=== PATIENT | male | born 1935 | race Caucasian/White ===

== ENCOUNTER 2017-01-04 09:24 | Outpatient (CLI) | payer MEDICARE, OTHER ==
--- NOTE | 2017-01-04 13:02 | Ultrasound Report ---
REVISED: THIS REPORT WAS ORIGINALLY SIGNED ON 01/04/2017 @ 1713. NO CHANGES MADE TO REPORT. ORIGINAL [facility] REQUISITION WAS REPRINTED ON 01/19/2017. LIMITED ABDOMINAL ULTRASOUND: 01/04/2017 CLINICAL HISTORY: Primarily for evaluation of the right kidney. The patient had an incidental finding of a renal cyst on MRI of the lumbar spine. TECHNIQUE: Real-time scanning was performed with tax representative static images obtained. FINDINGS: The right kidney measures 1.1 cm by 0.9 cm x 0.9 cm. Adjacent to or within the wall of this small cyst is some calcification or small calculus measuring 0.3 cm. These findings have a benign appearance. The rest of the right kidney appears normal including the mid pole. No other masses are seen in the right kidney. The pyelocaliceal system shows no distention. IMPRESSION: 1. SMALL CYST MEASURING 1.1 CM BY 0.9 CM BY 0.9 CM IS NOTED IN THE INFERIOR POLE OF THE RIGHT KIDNEY. THIS CYST CONTAINS EITHER SOME CALCIFICATION IN ITS WALL OR A SMALL CALCULUS ADJACENT TO IT. THE FINDINGS HAVE A BENIGN APPEARANCE. 2. NO ABNORMALITY WAS NOTED IN THE MID POLE OF THE RIGHT KIDNEY. ADDENDUM: For correlation with today's right renal ultrasound, patient's MRI of the lumbar spine from [facility] will be obtained for further correlation. On the recent MRI, there was a question of a right renal lesion, This led to today's ultrasound. JOB #: [id number] EXT JOB #: [id number] [email or web address]
== END 2017-01-04 09:25 | disposition home or self-care (01) ==
LOC: DI 09:24
PROVIDERS: ATTEND Internal Medicine
DX: N28.1 Cyst of kidney, acquired (principal)
CPT/HCPCS: 76705

== ENCOUNTER 2018-09-14 12:59 | Outpatient (CLI) | payer MEDICARE, OTHER ==
--- NOTE | 2018-09-14 14:38 | XRAY Report ---
Reason: R HIP PAIN Procedure Date: 09/14/2018 Accession Number: [id number] / [id number] Procedure: XR - Hip w/Pelvis 2-3V RT CPT Code: FULL RESULT: EXAM: RIGHT HIP RADIOGRAPHY EXAM DATE: 09/14/2018 01:15 PM. CLINICAL HISTORY: Right hip pain. COMPARISON: None. TECHNIQUE: 2 views. FINDINGS: Bones: Normal. No fractures or bone lesion. Joints: No dislocation. Bilateral moderate hip joint space narrowing. Soft Tissues: Normal. No soft tissue swelling. 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 RADIA
== END 2018-09-14 13:00 | disposition home or self-care (01) ==
LOC: DI 12:59
PROVIDERS: ATTEND Internal Medicine
DX: M16.0 Bilateral primary osteoarthritis of hip (principal)

== ENCOUNTER 2021-04-26 19:24 | Emergency (ER) | payer MEDICARE, OTHER ==
--- NOTE | 2021-04-26 19:50 | ED Physician Documentation ---
History of Present Illness - Stated complaint Stated Complaint: BEE STING REACTION - Chief complaint Chief Complaint: Allergic Rx - History obtained from History obtained from: Patient - Additonal information Additional information: 85yo with bee or wasp sting tonight at 7pm to lateral thigh. Developed diaphoresis and 45 minutes of substernal chest pain. Now better. Review of Systems Ten Systems: 10 systems reviewed and negative Constitutional: reports: Sweats Cardiac: reports: Chest pain / pressure. denies: Palpitations Respiratory: denies: Dyspnea, Cough PD PAST MEDICAL HISTORY - Past Medical History Past Medical History: Yes Cardiovascular: None Respiratory: None Endocrine/Autoimmune: None GI: None : Benign prostate hypertrophy HEENT: None Psych: None Musculoskeletal: Other Derm: Herpes zoster - Past Surgical History General: Appendectomy Ortho: Other HEENT: Tonsil/Adenoidectomy - Present Medications Home Medications: Ambulatory Orders Medication Instructions Recorded Confirmed No Known Home Medications 04/26/21 04/26/21 - Allergies Allergies/Adverse Reactions: Allergies Allergy/AdvReac Type Severity Reaction Status Date / Time No Known Drug Allergies Allergy Verified 04/26/21 19:28 - Social History Does the pt smoke?: No Smoking Status: Never smoker PD ED PE NORMAL - Vitals Vital signs reviewed: Yes - General General: Alert and oriented X 3, No acute distress - HEENT HEENT: PERRL, EOMI - Neck Neck: Supple, no meningeal sign, No bony TTP - Cardiac Cardiac: RRR, No murmur - Respiratory Respiratory: No respiratory distress, Clear bilaterally - Abdomen Abdomen: Normal bowel sounds, Soft, Non tender - Back Back: No CVA TTP, No spinal TTP - Derm Derm: Normal color, Warm and dry - Extremities Extremities: No edema, No calf tenderness / cord - Neuro Neuro: Alert and oriented X 3, Normal speech Results - Vitals Vitals: Vital Signs - 24 hr 04/26/21 04/26/21 19:29 19:31 Temperature 37.0 C 37 C Heart Rate 82 82 Respiratory 18 18 Rate Blood Pressure 113/65 113/65 O2 Saturation 99 99 Oxygen O2 Source Room air - EKG (time done) 1952 Rate: Rate (enter#) (85) Rhythm: NSR (w pvc) Eagle: Normal Intervals: Normal TX QRS: LVH Ischemia: Q waves, Non specific changes - Labs Labs: Laboratory Tests 04/26/21 04/26/21 04/26/21 20:25 20:25 20:25 WBC 14.6 H RBC 5.49 Hgb 16.2 Hct 48.2 MCV 87.8 MCH 29.5 MCHC 33.6 RDW 13.0 Plt Count 294 MPV 9.8 Neut # (Auto) 11.7 H Lymph # (Auto) 2.0 Mchenry # (Auto) 0.8 Eos # (Auto) 0.1 Baso # (Auto) 0.0 Absolute Nucleated RBC 0.00 Nucleated RBC % 0.0 Sodium 141 Potassium 4.4 Chloride 102 Carbon Dioxide 27 Anion Gap 12.0 BUN 26 H Creatinine 1.5 H Estimated GFR (MDRD) 45 L Glucose 208 H Calcium 9.3 Total Bilirubin 0.4 AST 22 ALT 19 Alkaline Phosphatase 91 Troponin I High Sens 6.3 Total Protein 7.5 Albumin 4.1 Globulin 3.4 Albumin/Globulin Ratio 1.2 Lipase 49 PD MEDICAL DECISION MAKING - ED course ED course: 85-year-old gentleman with known coronary disease presents with chest pain and diaphoresis that was temporary after a wasp sting. Nothing in the history or physical at this point to suggest this and his symptoms have resolved. Departure - Departure Disposition: 01 Home, Self Care Clinical Impression: Insect bites and stings, Chest pain Condition: Good Record reviewed to determine appropriate education?: Yes Instructions: ED Chest Pain Atypical Unkn Cause, ED Allergic Reaction Local Other Comments: No evidence of anything serious going on tonight. Note that your renal function has gone downhill over the last few years, currently BUN of 26, creatinine of 1.5, GFR 45. Recommend you follow-up with your primary care physician to discuss. Return for new or worsening symptoms.
[2021-04-26 20:32] LABS: BASOPHILS % (AUTO) 0.1 %; EOSINOPHILS # (AUTO) 0.1 10^3/uL (0.0-0.7); EOSINOPHILS % (AUTO) 0.3 %; HCT - HEMATOCRIT 48.2 % (42.0-52.0); HGB - HEMOGLOBIN 16.2 g/dL (14.0-18.0); LYMPHOCYTES % (AUTO) 13.6 %; MEAN CORPUSCULAR HEMOGLOBIN 29.5 pg (27.0-31.0); MEAN CORPUSCULAR HGB CONC 33.6 g/dL (32.0-36.0); MEAN CORPUSCULAR VOLUME 87.8 fL (80.0-94.0); MEAN PLATELET VOLUME 9.8 fL (7.4-11.4); MONOCYTES # (AUTO) 0.8 10^3/uL (0.0-1.0); MONOCYTES % (AUTO) 5.3 %; NEUTROPHILS # (AUTO) 11.7 10^3/uL (1.5-6.6); NEUTROPHILS % (AUTO) 80.3 %; PLT - PLATELET COUNT 294 10^3/uL (130-450); RED BLOOD COUNT 5.49 10^6/uL (4.70-6.10); WHITE BLOOD COUNT 14.6 x10^3/uL (4.8-10.8)
[2021-04-26 20:46] LABS: ALBUMIN 4.1 g/dL (3.2-5.5); ALBUMIN/GLOBULIN RATIO 1.2 (1.0-2.2); BILIRUBIN,TOTAL 0.4 mg/dL (0.2-1.0); CALCIUM 9.3 mg/dL (8.5-10.3); CREATININE 1.5 mg/dL (0.6-1.2); POTASSIUM 4.4 mmol/L (3.5-5.0); TOTAL PROTEIN 7.5 g/dL (6.7-8.2)
--- NOTE | 2021-04-26 21:13 | XRAY Report ---
PROCEDURE: Chest 1 View X-Ray INDICATIONS: Chest Pain COMMENTS: bee sting today, possible allergic reaction PRIORS: none TECHNIQUE: One view of the chest was acquired. COMPARISON: None FINDINGS: Surgical changes and devices: None. Lungs and pleura: No pleural effusions or pneumothorax. Lungs are clear. Mediastinum: Mediastinal contours appear normal. Heart size is normal. Bones and chest wall: No suspicious bony lesions. Overlying soft tissues appear unremarkable. IMPRESSION: No acute cardiopulmonary abnormality Reviewed by: Christopher Cloud on 04/26/2021 9:12 PM PDT Approved by: Christopher Cloud on 04/26/2021 9:12 PM PDT Station ID: [id number]
[2021-04-26 21:29] VITALS: BP 108/72
== END 2021-04-26 21:35 | disposition home or self-care (01) ==
LOC: ED 19:24
DX: T63.461A Toxic effect of venom of wasps, accidental (unintentional), initial encounter (principal); R07.89 Other chest pain; R61 Generalized hyperhidrosis; I25.10 Atherosclerotic heart disease of native coronary artery without angina pectoris; I49.3 Ventricular premature depolarization
CPT/HCPCS: 36415; 80053; 83690; 84484; 85025; 93005; 99282; 99284

== ENCOUNTER 2021-10-25 08:00 | Outpatient (CLI) | payer MEDICARE, OTHER ==
[2021-10-25 17:45] LABS: BASOPHILS # (AUTO) 0.1 10^3/uL (0.0-0.1); BASOPHILS % (AUTO) 0.6 %; EOSINOPHILS # (AUTO) 0.1 10^3/uL (0.0-0.7); EOSINOPHILS % (AUTO) 0.9 %; HCT - HEMATOCRIT 46.2 % (42.0-52.0); HGB - HEMOGLOBIN 15.6 g/dL (14.0-18.0); LYMPHOCYTES # (AUTO) 2.2 10^3/uL (1.5-3.5); MEAN CORPUSCULAR HEMOGLOBIN 29.5 pg (27.0-31.0); MEAN CORPUSCULAR HGB CONC 33.8 g/dL (32.0-36.0); MEAN CORPUSCULAR VOLUME 87.5 fL (80.0-94.0); MEAN PLATELET VOLUME 10.5 fL (7.4-11.4); MONOCYTES # (AUTO) 0.8 10^3/uL (0.0-1.0); MONOCYTES % (AUTO) 9.7 %; NEUTROPHILS % (AUTO) 61.6 %; PLT - PLATELET COUNT 285 10^3/uL (130-450); RED BLOOD COUNT 5.28 10^6/uL (4.70-6.10); RED CELL DISTRIBUTION WIDTH 13.2 % (12.0-15.0); WHITE BLOOD COUNT 8.1 x10^3/uL (4.8-10.8)
[2021-10-25 18:15] LABS: ALBUMIN 4.5 g/dL (3.2-5.5); ALBUMIN/GLOBULIN RATIO 1.2 (1.0-2.2); ALKALINE PHOSPHATASE 83 IU/L (42-121); ALT ALANINE AMINOTRANSFERASE 20 IU/L (10-60); AST ASPARTATE AMINOTRANSFERASE 22 IU/L (10-42); BILIRUBIN,TOTAL 0.9 mg/dL (0.2-1.0); BUN - BLOOD UREA NITROGEN 22 mg/dL (6-20); CALCIUM 9.6 mg/dL (8.5-10.3); CARBON DIOXIDE - CO2 27 mmol/L (21-32); CHLORIDE 99 mmol/L (101-111); CHOL/HDL RATIO 4.3 (<5.0); CHOLESTEROL 191 mg/dL; CREATININE 1.3 mg/dL (0.6-1.2); GFR - MDRD 53 (>89); GLUCOSE 93 mg/dL (70-100); HDL CHOLESTEROL 44 mg/dL; LDL CHOLESTEROL,CALCULATED 125 mg/dL; LDL/HDL RATIO 2.8 (<3.6); POTASSIUM 3.7 mmol/L (3.5-5.0); SODIUM 140 mmol/L (135-145); TOTAL PROTEIN 8.3 g/dL (6.7-8.2); TRIGLYCERIDES 108 mg/dL; VLDL CHOLESTEROL 22 mg/dL
[2021-10-25 18:16] LABS: PSA FREE 1.281 ng/mL (0.16-2.81)
[2021-10-25 18:17] LABS: PSA TOTAL 3.232 ng/mL (0.000-2.000)
[2021-10-25 18:21] LABS: THYROID STIMULATING HORMONE 2.96 uIU/mL (0.34-5.60)
[2021-10-25 18:58] LABS: ESTIMATED AVERAGE GLUCOSE 123 mg/dL (70-100); HEMOGLOBIN A1c% 5.9 % (4.27-6.07)
== END 2021-10-25 23:59 | disposition home or self-care (01) ==
LOC: LAB.R 08:00
PROVIDERS: ATTEND Internal Medicine
DX: Z00.00 Encounter for general adult medical examination without abnormal findings (principal); N40.0 Benign prostatic hyperplasia without lower urinary tract symptoms; R74.8 Abnormal levels of other serum enzymes; R20.0 Anesthesia of skin; M19.90 Unspecified osteoarthritis, unspecified site; Z13.6 Encounter for screening for cardiovascular disorders; M48.00 Spinal stenosis, site unspecified; R53.1 Weakness
CPT/HCPCS: 80053; 80061; 82607; 83036; 83721; 84153; 84154; 84443; 85025

== ENCOUNTER 2021-11-10 15:35 | Outpatient (CLI) | payer MEDICARE, OTHER ==
--- NOTE | 2021-11-11 14:09 | Ultrasound Report ---
PROCEDURE: Duplex Lwr Ext Arterial Bilat INDICATIONS: WEAKNESS, LEG NUMBNESS TECHNIQUE: Color and pulse Doppler interrogation was performed of both lower extremity arterial systems, with im age documentation. COMPARISON: None FINDINGS: Right lower extremity: Common femoral artery: 98 cm/sec, with triphasic flow. Deep femoral artery: 89 cm/sec, with triphasic flow. Proximal superficial femoral artery: 108 cm/sec, with triphasic flow. Mid superficial femoral artery: 96 cm/sec, with triphasic flow. Distal superficial femoral artery: 106 cm/sec, with tract flow. Popliteal artery: 63 cm/sec, with triphasic flow. Posterior tibial artery: 122 cm/sec, with triphasic flow. Anterior tibial artery/dorsalis pedis: 91/49 cm/sec, with triphasic/biphasic flow. Green-scale imaging description: Mild scattered plaque. Left lower extremity: Common femoral artery: 81 cm/sec, with triphasic flow. Deep femoral artery: 70 cm/sec, with triphasic flow. Proximal superficial femoral artery: 60 cm/sec, with triphasic flow. Mid superficial femoral artery: 93 cm/sec, with triphasic flow. Distal superficial femoral artery: 84 cm/sec, with triphasic flow. Popliteal artery: 87 cm/sec, with triphasic flow. Posterior tibial artery: 29 cm/sec, with moderate flow. Anterior tibial artery/dorsalis pedis: 131/65 cm/sec, with triphasic/monophasic flow. Green-scale imaging description: Mild scattered plaque. IMPRESSION: Monophasic flow is noted within the posterior tibial artery on the left without visualized high-grade stenosis. Reviewed by: Sharita Fitzgerald MD on 11/11/2021 2:07 PM PDT Approved by: Sharita Fitzgerald MD on 11/11/2021 2:07 PM PDT Station ID: [id number]
== END 2021-11-10 15:36 | disposition home or self-care (01) ==
LOC: DI 15:35
PROVIDERS: ATTEND Internal Medicine
DX: I70.202 Unspecified atherosclerosis of native arteries of extremities, left leg (principal)
CPT/HCPCS: 93925

== ENCOUNTER 2022-01-04 09:46 | Outpatient (CLI) | payer MEDICARE, OTHER ==
--- NOTE | 2022-01-04 13:35 | MRI Report ---
PROCEDURE: MRI brain without contrast INDICATIONS: LEG WEAKNESS, LEG SPASM AND NUMBNESS TECHNIQUE: Noncontrast axial T1 spin echo, axial T2 fast spin echo, sagittal and axial FLAIR, coronal T2 fast sp in echo, axial gradient echo, axial diffusion and ADC through the brain. COMPARISON: None. FINDINGS: Image quality: Excellent. CSF Spaces: Basal cisterns are patent. No extra-axial fluid collections. Ventricles are normal in size and shape. Brain: No intracranial masses or hemorrhage. Green/white matter interface is normal. Brainstem appe ars normal. Diffusion-weighted images demonstrate no acute infarcts. Normal intravascular flow void s are present. Moderate atrophy and mild multifocal chronic ischemic changes noted Skull and face: Calvarium has normal marrow signal. Orbits appear normal. Sinuses: Sinuses and mastoids are clear. IMPRESSION: Atrophy and chronic ischemic change without intracranial hemorrhage, infarct or mass lesion. Reviewed by: Jermaine Moscoso MD on 01/04/2022 12:33 PM MIGUEL Approved by: Jermaine Moscoso MD on 01/04/2022 12:33 PM AKTANNER Station ID: [id number]
== END 2022-01-04 09:47 | disposition home or self-care (01) ==
LOC: DI 09:46
PROVIDERS: ATTEND Internal Medicine
DX: R25.2 Cramp and spasm (principal); R29.898 Other symptoms and signs involving the musculoskeletal system; R20.0 Anesthesia of skin; G31.89 Other specified degenerative diseases of nervous system; I67.82 Cerebral ischemia

== ENCOUNTER 2022-03-15 09:52 | Outpatient (CLI) | payer MEDICARE, OTHER ==
[2022-03-15 16:13] LABS: BILIRUBIN,URINE NEGATIVE (NEGATIVE); GLUCOSE, URINE (UA) NEGATIVE (NEGATIVE); KETONES,URINE (UA) NEGATIVE (NEGATIVE); LEUKOCYTE ESTERASE, URINE NEGATIVE (NEGATIVE); NITRITE,URINE NEGATIVE (NEGATIVE); OCCULT BLOOD,URINE NEGATIVE (NEGATIVE); PH,URINE 5.5 PH (5.0-7.5); PROTEIN,URINE NEGATIVE (NEGATIVE); UROBILINOGEN,URINE 0.2 (NORMAL) E.U./dL (NORMAL)
[2022-03-15 16:38] LABS: CLARITY,URINE CLEAR (CLEAR)
[2022-03-15 17:02] LABS: WBC,URINE 0-3 /HPF (0-3)
[2022-03-15 17:03] LABS: RBC,URINE 0-5 /HPF (0-5); SQUAMOUS EPITHELIAL CELL,UR FEW Squamous (<= Few)
[2022-03-15 17:04] LABS: BACTERIA,URINE Rare /HPF (None Seen); CRYSTALS,URINE 6-10 Calcium Oxalate /LPF
== END 2022-03-15 23:59 | disposition home or self-care (01) ==
LOC: LAB.R 09:52
PROVIDERS: ATTEND Internal Medicine
DX: R10.9 Unspecified abdominal pain (principal); R07.1 Chest pain on breathing; M48.00 Spinal stenosis, site unspecified; Z76.89 Persons encountering health services in other specified circumstances
CPT/HCPCS: 81001; 87086

== ENCOUNTER 2022-03-15 10:19 | Outpatient (CLI) | payer MEDICARE, OTHER ==
--- NOTE | 2022-03-15 18:04 | XRAY Report ---
PROCEDURE: Chest 2 View X-Ray INDICATIONS: RIGHT FLANK PAIN TECHNIQUE: 2 view(s) of the chest. COMPARISON: None. FINDINGS: Surgical changes and devices: None Lungs and pleura: Pulmonary hyperinflation and chronic interstitial changes Mediastinum: Mediastinal contours are normal. Heart size is normal. Bones and chest wall: No suspicious bony abnormalities. Soft tissues appear unremarkable. IMPRESSION: No acute cardiopulmonary findings Reviewed by: Jermaine Moscoso MD on 03/15/2022 5:02 PM AKDT Approved by: Jermaine Moscoso MD on 03/15/2022 5:02 PM AKDT Station ID: [id number]
== END 2022-03-15 10:20 | disposition home or self-care (01) ==
LOC: DI 10:19
PROVIDERS: ATTEND Internal Medicine
DX: R07.81 Pleurodynia (principal); R10.9 Unspecified abdominal pain